=== PATIENT | male | born 1990 | race American Indian/Alaskan Native ===

== ENCOUNTER 2017-01-22 18:21 | Emergency (ER) | payer OTHER ==
[2017-01-22 19:00] VITALS: BP 127/77; PULSE 69; RESP 18; TEMP 98.6; O2SAT 98; BMI 25.8
--- NOTE | 2017-01-22 20:05 | ED PDOC ---
Arrival/HPI - General Chief Complaint: Allergic Reaction Time Seen by Provider: 01/22/17 19:15 Historian: Patient - History of Present Illness Narrative History of Present Illness (Text): 01/22/17 21:59 26yr old male presents today with 2 week history of rash and pruritis. pt states 2 week ago rash started after spraying OFF on his body. pt states he thought he was getting lots of bug bites. then patient developed pruritis to chest abdomen and back. pt states rash is dry and itchy. denies cp or sob. no abdominal pain. denies prior hx of psoriasis. Denies prior history of any skin infection. Denies difficulty breathing or swallowing. Denies rash on palms or soles. No other complaints Time/Duration: Other (2 weeks) Symptom Onset: Gradual Symptom Course: Worsening Quality: Other (No pain) Past Medical History - Provider Review Nursing Documentation Reviewed: Yes - Travel History Have you recently traveled outside [place] w/in the past 3 mons?: No - Infectious Disease Hx of Infectious Diseases: None - Tetanus Immunization Tetanus Immunization: Unknown - Past Medical History Past Medical History: No Previous - Psychiatric Hx Depression: No Hx Substance Use: No - Past Surgical History Past Surgical History: No Previous - Anesthesia Hx Anesthesia: No - Suicidal Assessment Feels Threatened In Home Enviroment: No Family/Social History - Physician Review Nursing Documentation Reviewed: Yes Family/Social History: Unknown Family HX Smoking Status: Never Smoked Hx Alcohol Use: No Hx Substance Use: No Substance used: marijuana Allergies/Home Meds Allergies/Adverse Reactions: Allergies bee venom protein (honey bee) Adverse Reaction (Verified 01/22/17 18:53) SWELLING Review of Systems - Review of Systems Constitutional: absent: Fatigue, Fevers Respiratory: absent: SOB, Cough Cardiovascular: absent: Chest Pain, Palpitations Gastrointestinal: absent: Abdominal Pain, Nausea, Vomiting Skin: Rash, Pruritis Neurological: absent: Headache, Dizziness Psychiatric: absent: Anxiety, Depression Physical Exam Vital Signs Reviewed: Yes Vital Signs Temp Pulse Resp BP Pulse Ox 01/22/17 18:49 98.6 F 69 18 127/77 98 Temperature: Afebrile Blood Pressure: Normal Pulse: Regular Respiratory Rate: Normal Appearance: Positive for: Well-Appearing, Non-Toxic, Comfortable Pain Distress: None Mental Status: Positive for: Alert and Oriented X 3 - Systems Exam Head: Present: Atraumatic Mouth: Present: Moist Mucous Membranes Neck: Present: Normal Range of Motion Respiratory/Chest: Present: Clear to Auscultation, Good Air Exchange. No: Respiratory Distress, Accessory Muscle Use Cardiovascular: Present: Regular Rate and Rhythm, Normal S1, S2. No: Murmurs Upper Extremity: Present: Normal ROM Lower Extremity: Present: Normal ROM Neurological: Present: GCS=15, Speech Normal Skin: Present: Warm, Dry, Rashes (Multiple erythematous scaling plaques of varying sizes noted to the forearms upper arms and chest back abdomen and lower legs. Rash spares the palms and soles.), Normal Color Psychiatric: Present: Alert, Oriented x 3 Medical Decision Making ED Course and Treatment: 01/22/17 Patient is nontoxic well-appearing in no distress with stable vital signs no angioedema. Lungs are clear to auscultation bilaterally there is no wheezing noted. The airway is patent Benadryl 25mg po prednisone po rash x 2 weeks; spares palms and soles; has psoriatic appearance to it. We'll cover her with prednisone, pepcid and Benadryl for the age. Advised follow-up with the occupational nurse within the next 2 days. Advised patient to follow up with primary care physician within the next 2 days and return if symptoms worsen persist or if new symptoms develop patient verbalized full agreement with and understanding of discharge instructions. States that he agrees with the plan and disposition. Verbalized and repeated discharge instructions and plan. I have given he the opportunity to ask any additional questions. all aspects of this case were discussed the attending of record. Impression :rash Benadryl every 6 hours as needed for itch Prednisone once daily x4 days Pepcid one tablet daily Follow up with the primary care physician within the next 2 days Follow up with the occupational nurse within the next 2 days. Return if symptoms worsen persist or if new symptoms develop: Shortness of breath, feeling of throat closing, difficulty speaking or any other concerning symptoms develop - Medication Orders Current Medication Orders: Discontinued Medications Diphenhydramine HCl (Benadryl) 25 mg PO ONCE ONE Stop: 01/22/17 19:48 Last Admin: 01/22/17 19:57 Dose: 25 mg Famotidine (Pepcid) 20 mg PO STAT STA Stop: 01/22/17 19:48 Last Admin: 01/22/17 19:57 Dose: 20 mg Prednisone (Prednisone Tab) 60 mg PO STAT ONE Stop: 01/22/17 19:48 Last Admin: 01/22/17 19:57 Dose: 60 mg Disposition/Present on Arrival - Present on Arrival Any Indicators Present on Arrival: No History of DVT/PE: No History of Uncontrolled Diabetes: No Urinary Catheter: No History of Decub. Ulcer: No History Surgical Site Infection Following: None - Disposition Have Diagnosis and Disposition been Completed?: Yes Diagnosis: Rash Disposition: HOME/ ROUTINE Disposition Time: 19:40 Patient Plan: Discharge Condition: GOOD Discharge Instructions (ExitCare): Acute Rash (ED) Additional Instructions: Benadryl every 6 hours as needed for itch Prednisone once daily x4 days Pepcid one tablet daily Follow up with the primary care physician within the next 2 days Follow up with the occupational nurse within the next 2 days. Return if symptoms worsen persist or if new symptoms develop: Shortness of breath, feeling of throat closing, difficulty speaking or any other concerning symptoms develop Prescriptions: DiphenhydrAMINE [Benadryl] 25 mg PO Q6H #20 cap Famotidine [Pepcid] 20 mg PO DAILY #30 tab predniSONE [predniSONE Tab] 3 tab PO DAILY #12 tab Referrals: Morales Stern DO [Staff Provider] - Follow up with primary Radha Blanca MD [Staff Provider] - Follow up with primary Forms: [employer] ([place]), WORK NOTE
== END 2017-01-22 20:05 | disposition home or self-care (01) ==
LOC: ED 18:21
DX: R21 Rash and other nonspecific skin eruption (principal)

== ENCOUNTER 2017-06-13 08:40 | Emergency (ER) | payer OTHER ==
[2017-06-13 08:55] VITALS: BMI 25.2
[2017-06-13 08:57] VITALS: TEMP 98.4
--- NOTE | 2017-06-13 09:22 | ED PDOC ---
Arrival/HPI - General Historian: Patient <herreraAriel A - Last Filed: 06/13/17 10:58> <Carolina Johnson - Last Filed: 06/14/17 12:21> - General Chief Complaint: Rib Injury Time Seen by Provider: 06/13/17 09:01 - History of Present Illness Narrative History of Present Illness (Text): 06/13/17 09:16 26yo male with no PMhx who present with complaint of right rib pain since this morning. Notes that pain started when he woke up this morning. Pain is with deep inspiration, 5/10, achy. He did not take any medication. Denies cough, trauma, SOB, diaphoresis, any other complaint. (Ariel Ayers A) Past Medical History - Provider Review Nursing Documentation Reviewed: Yes - Infectious Disease Hx of Infectious Diseases: None - Tetanus Immunization Tetanus Immunization: Unknown - Past Medical History Past Medical History: No Previous - Psychiatric Hx Depression: No Hx Substance Use: No - Past Surgical History Past Surgical History: No Previous - Anesthesia Hx Anesthesia: No - Suicidal Assessment Feels Threatened In Home Enviroment: No <ArmenAriel A - Last Filed: 06/13/17 10:58> Family/Social History - Physician Review Nursing Documentation Reviewed: Yes Family/Social History: Unknown Family HX Smoking Status: Never Smoked Hx Alcohol Use: Yes Frequency of alcohol use: Socially Hx Substance Use: No Substance used: marijuana <Ariel Ayers A - Last Filed: 06/13/17 10:58> Allergies/Home Meds <Ariel Ayers A - Last Filed: 06/13/17 10:58> <Carolina Johnson - Last Filed: 06/14/17 12:21> Allergies/Adverse Reactions: Allergies bee venom protein (honey bee) Adverse Reaction (Verified 01/22/17 18:53) SWELLING Review of Systems - Physician Review All systems were reviewed & negative as marked: Yes - Review of Systems Constitutional: Normal Eyes: Normal ENT: Normal Respiratory: Normal Cardiovascular: Normal Gastrointestinal: Normal Genitourinary Male: Normal Musculoskeletal: Arthralgias (right rib pain) Skin: Normal Neurological: Normal Endocrine: Normal Hemo/Lymphatic: Normal Psychiatric: Normal <Ariel Ayers A - Last Filed: 06/13/17 10:58> Physical Exam Vital Signs Reviewed: Yes Temperature: Afebrile Blood Pressure: Normal Pulse: Regular Respiratory Rate: Normal Appearance: Positive for: Well-Appearing, Non-Toxic, Comfortable Pain Distress: None Mental Status: Positive for: Alert and Oriented X 3 - Systems Exam Head: Present: Atraumatic, Normocephalic Pupils: Present: PERRL Extroacular Muscles: Present: EOMI Conjunctiva: Present: Normal Mouth: Present: Moist Mucous Membranes Neck: Present: Normal Range of Motion Respiratory/Chest: Present: Clear to Auscultation, Good Air Exchange, Tender to Palpation (Mild tenderness to right sided anterior lower rib/sternal angle). No : Respiratory Distress, Accessory Muscle Use, Wheezes, Decreased Breath Sounds, Retracting, Rhonchi Cardiovascular: Present: Regular Rate and Rhythm, Normal S1, S2. No: Murmurs Abdomen: Present: Normal Bowel Sounds. No: Tenderness, Distention, Peritoneal Signs Back: Present: Normal Inspection Upper Extremity: Present: Normal Inspection. No: Cyanosis, Edema Lower Extremity: Present: Normal Inspection. No: Edema Neurological: Present: GCS=15, CN II-XII Intact, Speech Normal Skin: Present: Warm, Dry, Normal Color. No: Rashes Psychiatric: Present: Alert, Oriented x 3, Normal Insight, Normal Concentration <Ariel Ayers A - Last Filed: 06/13/17 10:58> Vital Signs Temp Pulse Resp BP Pulse Ox 06/13/17 10:30 72 16 131/77 98 06/13/17 08:56 98.4 F 68 18 145/68 99 Medical Decision Making <ArmenHappiness A - Last Filed: 06/13/17 10:58> <Carolina Johnson - Last Filed: 06/14/17 12:21> ED Course and Treatment: 06/13/17 11:02 Right ribs/CXR No fracture. No PTX. Pt DC home with ibuprofen. Referred to his PMD (Ariel Ayers A) - RAD Interpretation Radiology Orders: 06/13/17 09:09 RIBS RIGHT & PA CHEST [RAD] Stat - Medication Orders Current Medication Orders: Discontinued Medications Ibuprofen (Motrin Tab) 600 mg PO STAT STA Stop: 06/13/17 09:10 Last Admin: 06/13/17 09:28 Dose: 600 mg MAR Pain/Vitals Document 06/13/17 09:28 JOSIAH (Rec: 06/13/17 09:28 [facility] [id number]) Pain Reassessment Is This A Pain ReAssessment? No Sleep Is patient sleeping during reassessment? No Presence of Pain Presence of Pain Yes Re-Assess: [id number] Pain/Vitals Document 06/13/17 10:28 JOSIAH (Rec: 06/13/17 13:37 [facility] [id number]) Pain Reassessment Is This A Pain ReAssessment? No - PA / CHEMICAL EQUIPMENT REPAIRER / Resident Statement MD/DO has reviewed & agrees with the documentation as recorded. <Carolina Johnson - Last Filed: 06/14/17 12:21> Disposition/Present on Arrival - Present on Arrival Any Indicators Present on Arrival: No History of DVT/PE: No History of Uncontrolled Diabetes: No Urinary Catheter: No History of Decub. Ulcer: No History Surgical Site Infection Following: None - Disposition Have Diagnosis and Disposition been Completed?: Yes Disposition Time: 11:05 Patient Plan: Discharge <Ariel Ayers - Last Filed: 06/13/17 10:58> - Present on Arrival Any Indicators Present on Arrival: No History of DVT/PE: No History of Uncontrolled Diabetes: No Urinary Catheter: No History of Decub. Ulcer: No History Surgical Site Infection Following: None - Disposition Have Diagnosis and Disposition been Completed?: Yes <Carolina Johnson - Last Filed: 06/14/17 12:21> - Disposition Diagnosis: Rib pain Disposition: HOME/ ROUTINE Condition: STABLE Discharge Instructions (ExitCare): Chest Pain (ED) Additional Instructions: Follow up with your doctor Return to ED for any new or worsening symptoms Prescriptions: Ibuprofen [Motrin Tab] 600 mg PO Q6 #20 tab Referrals: Kimani العراقي, [Primary Care Provider] - Follow up with primary [facility] [Outside] - Follow up with primary Forms: [employer] ([place]izen [place])
--- NOTE | 2017-06-13 10:49 | RAD ---
PROCEDURE: Radiographs of the Chest and Right Ribs. HISTORY: rib pain COMPARISON: None available. TECHNIQUE: Frontal radiograph of the chest and multiple oblique radiographs of the right ribs were obtained. FINDINGS: RIGHT RIBS: No fracture or focal lesion visualized. LUNGS: Clear. PLEURA: No pneumothorax or pleural fluid. CARDIOVASCULAR: Normal sized heart. No pulmonary vascular congestion. OTHER FINDINGS: None. IMPRESSION: Unremarkable radiographs of the chest and right ribs. No right rib fracture.
[2017-06-13 13:00] VITALS: BP 131/77; PULSE 72; RESP 16; O2SAT 98
== END 2017-06-13 11:20 | disposition home or self-care (01) ==
LOC: ED 08:40
DX: R07.89 Other chest pain (principal)

== ENCOUNTER 2017-06-16 04:53 | Emergency (ER) | payer OTHER ==
[2017-06-16 04:54] VITALS: BMI 25.2
[2017-06-16 05:06] VITALS: TEMP 97.5
--- NOTE | 2017-06-16 05:55 | ED PDOC ---
Arrival/HPI - General Chief Complaint: GI Problem Time Seen by Provider: 06/16/17 05:00 Historian: Patient - History of Present Illness Narrative History of Present Illness (Text): 06/16/17 05:55 A 26 year old male presents to the emergency department following episode of vomiting and nausea after having a few alcohol drinks this evening. Patient denies any diarrhea, abdominal pain or any other complaints at this time. Symptom Onset: Sudden Symptom Course: Unchanged Activities at Onset: Rest Context: Home Past Medical History - Provider Review Nursing Documentation Reviewed: Yes - Infectious Disease Hx of Infectious Diseases: None - Tetanus Immunization Tetanus Immunization: Unknown - Past Medical History Past Medical History: No Previous - Psychiatric Hx Depression: No Hx Substance Use: Yes - Past Surgical History Past Surgical History: No Previous - Anesthesia Hx Anesthesia: No - Suicidal Assessment Feels Threatened In Home Enviroment: No Family/Social History - Physician Review Nursing Documentation Reviewed: Yes Family/Social History: No Known Family HX Smoking Status: Never Smoked Hx Alcohol Use: Yes Hx Substance Use: Yes Substance used: marijuana Allergies/Home Meds Allergies/Adverse Reactions: Allergies bee venom protein (honey bee) Adverse Reaction (Verified 06/16/17 05:06) SWELLING Review of Systems - Physician Review All systems were reviewed & negative as marked: Yes - Review of Systems Constitutional: absent: Fevers Gastrointestinal: Nausea, Vomiting. absent: Abdominal Pain, Diarrhea Physical Exam Vital Signs Reviewed: Yes Vital Signs Temp Pulse Resp BP Pulse Ox 06/16/17 05:03 97.5 F L 68 16 98/66 L 99 Temperature: Afebrile Blood Pressure: Normal Pulse: Regular Respiratory Rate: Normal Appearance: Positive for: Comfortable, Other (mal odorous) Pain Distress: None Mental Status: Positive for: Alert and Oriented X 3 - Systems Exam Head: Present: Atraumatic, Normocephalic Pupils: Present: PERRL Extroacular Muscles: Present: EOMI Conjunctiva: Present: Normal Mouth: Present: Moist Mucous Membranes Neck: Present: Normal Range of Motion Respiratory/Chest: Present: Clear to Auscultation, Good Air Exchange. No: Respiratory Distress, Accessory Muscle Use Cardiovascular: Present: Regular Rate and Rhythm, Normal S1, S2. No: Murmurs Abdomen: Present: Normal Bowel Sounds. No: Tenderness, Distention, Peritoneal Signs Back: Present: Normal Inspection Upper Extremity: Present: Normal Inspection. No: Cyanosis, Edema Lower Extremity: Present: Normal Inspection. No: Edema Neurological: Present: GCS=15, CN II-XII Intact, Speech Normal Skin: Present: Warm, Dry, Normal Color. No: Rashes Psychiatric: Present: Alert, Oriented x 3, Normal Insight, Normal Concentration Medical Decision Making ED Course and Treatment: 06/16/17 05:53 Impression: A 26 year old male with vomiting. Plan: -- Zofran -- Reassess and disposition Prior Visits: Notes and results from previous visits were reviewed. Patient was last seen in the emergency department on 06/13/17 for evaluation of right rib pain. Progress Notes: - Medication Orders Current Medication Orders: Discontinued Medications Ondansetron HCl (Zofran Odt) 4 mg PO STAT STA Stop: 06/16/17 05:53 Last Admin: 06/16/17 06:03 Dose: 4 mg - Scribe Statement The provider has reviewed the documentation as recorded by the Tracy Damico Provider Scribe Attestation: All medical record entries made by the Zinaibluis daniel were at my direction and personally dictated by me. I have reviewed the chart and agree that the record accurately reflects my personal performance of the history, physical exam, medical decision making, and the department course for this patient. I have also personally directed, reviewed, and agree with the discharge instructions and disposition. Disposition/Present on Arrival - Present on Arrival Any Indicators Present on Arrival: No History of DVT/PE: No History of Uncontrolled Diabetes: No Urinary Catheter: No History of Decub. Ulcer: No History Surgical Site Infection Following: None - Disposition Have Diagnosis and Disposition been Completed?: Yes Diagnosis: Gastritis Disposition: HOME/ ROUTINE Disposition Time: 06:50 Patient Plan: Discharge Patient Problems: Current Active Problems Problem Status Onset Gastritis Acute Condition: GOOD Discharge Instructions (ExitCare): Gastritis (ED) Additional Instructions: Medication as prescribed/don't drink alcohol/follow up with your doctor Prescriptions: Ondansetron [Zofran Odt] 4 mg PO Q8 PRN #6 odt PRN Reason: Nausea/Vomiting Forms: [employer] ([place])
[2017-06-16 07:01] VITALS: BP 105/72; PULSE 70; RESP 18; O2SAT 100
== END 2017-06-16 07:01 | disposition home or self-care (01) ==
LOC: ED 04:53
DX: K29.70 Gastritis, unspecified, without bleeding (principal)

== ENCOUNTER 2017-06-29 07:32 | Emergency (ER) | payer OTHER ==
[2017-06-29 07:33] VITALS: BMI 25.2
[2017-06-29 08:03] VITALS: RESP 18; O2SAT 98
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
--- NOTE | 2017-06-29 10:45 | MRI ---
PROCEDURE: MRI Left Knee HISTORY: Twisted knee, severe pain/ swelling COMPARISON: Comparison is made with the previous x-ray of the left knee dated 06/29/2017 TECHNIQUE: Multiecho multiplanar sequences were performed through the left knee. FINDINGS: ANTERIOR CRUCIATE LIGAMENT:: High-grade sprain and partial thickness tear of the anterior cruciate ligament noted. POSTERIOR CRUCIATE LIGAMENT:: Intact. MEDIAL MENISCUS:: Mild extrusion of the medial meniscus noted associated with increased signal at the meniscus root suspicious for small tear. LATERAL MENISCUS:: Intact. MEDIAL COLLATERAL LIGAMENT:: There is moderate grade 2-3 sprain of the medial collateral ligament P LATERAL COLLATERAL LIGAMENT COMPLEX:: There is moderate to severe it grade 3 for sprain of the lateral collateral ligament complex. QUADRICEPS TENDON:: [id number] increased signal noted at the distal quadriceps tendon suggestive of moderate tendinopathy. The possibility of small intra substance tear is not totally excluded P PATELLAR TENDON:: There are also foci of increased signal noted at the patellar tendon suggestive of moderate tendinopathy. The heterogeneous increased signal more prominent at the distal/ tibial tuberosity attachment of the patellar tendon P CARTILAGE:: Foci of cartilage defects and thinning noted at the lateral femoral condyle. JOINT FLUID:: There is large joint effusion more prominent at the suprapatellar recess. OSSEOUS STRUCTURES:: There are foci of heterogeneous increased bone marrow signal noted at the posterior aspect of the patella and in the lateral femoral condyle suggestive of kissing subchondral bone bruises which likely represent secondary sign of ACL tear. The possibility of small nondisplaced fracture is less likely but not totally excluded. OTHER FINDINGS: Heterogeneous mild increased signal noted at the [place] fat. Increased signal also noted in the soft tissue at the posterior aspect of the knee suggestive of recent trauma. IMPRESSION: High-grade and partial-thickness tear of the anterior cruciate ligament. Large joint effusion. Hyperintense increased signal in the bone marrow noted at the posterior aspect of the tibial plateau to and in the lateral femoral condyle suggestive of kissing subchondral bone bruises. Heterogeneous increased signal noted in the quadriceps and patellar tendons. Suspicious for mild anterior horn medial meniscus extrusion with possible small tear at the medial meniscus root. Heterogeneous increased signal in the soft tissue suggestive of recent trauma.
--- NOTE | 2017-06-29 11:17 | RAD ---
PROCEDURE: Left Knee Radiographs. . HISTORY: Pain. COMPARISON: Correlation made with concurrent MRI in the FINDINGS: BONES: No evidence of acute displaced fracture nor dislocation JOINTS: Normal. No osteoarthritis. JOINT EFFUSION: Large suprapatellar size joint effusion. OTHER FINDINGS: None. IMPRESSION: No evidence of acute displaced fracture nor dislocation. Large suprapatellar joint effusion. The the the
[2017-06-29 11:39] VITALS: BP 132/78; PULSE 78; TEMP 98.3
== END 2017-06-29 11:40 | disposition home or self-care (01) ==
LOC: ED 07:32
DX: S83.512A Sprain of anterior cruciate ligament of left knee, initial encounter (principal); S70.12XA Contusion of left thigh, initial encounter; V18.0XXA Pedal cycle driver injured in noncollision transport accident in nontraffic accident, initial encounter; Y92.410 Unspecified street and highway as the place of occurrence of the external cause
CPT/HCPCS: 73562; 73721; 96372; 99283; J1885

== ENCOUNTER 2018-06-18 08:18 | Emergency (ER) | payer MEDICAID, OTHER ==
[2018-06-18 08:18] VITALS: BMI 25.2
--- NOTE | 2018-06-18 10:12 | ED PDOC ---
Arrival/HPI - General Chief Complaint: Cough, Cold, Congestion Time Seen by Provider: 06/18/18 09:22 Historian: Patient - History of Present Illness Narrative History of Present Illness (Text): 27 year old male, with no significant past medical history, who presents to the emergency department complaining of intermittent cough, congestion, and cold symptoms for the past month, worse last night and this morning. Patient reports he took an Advil last night before going to sleep, without significant relief. Patient notes he took Augmentin 110mg this morning around 06:00 (his moms). Patient states he has been taking Advil and Vitamin C throughout the month, with significant relief of symptoms intermittently. Patient states he did not go to see his PMD since he felt he was improving. Patient notes nausea, chills/night sweats, fevers, congestion and phlegm. Patient denies sore throat, or any other complaints. PMD: Madie Rubio Time/Duration: Other (Pt notes sx for past month, worse last night and this morning) Symptom Onset: Sudden Symptom Course: Intermittent Activities at Onset: Light Past Medical History - Provider Review Nursing Documentation Reviewed: Yes - Infectious Disease Hx of Infectious Diseases: None - Tetanus Immunization Tetanus Immunization: Unknown - Past Medical History Past Medical History: No Previous - Psychiatric Hx Depression: No Hx Substance Use: Yes - Past Surgical History Past Surgical History: No Previous - Surgical History Hx Orthopedic Surgery: Yes - Anesthesia Hx Anesthesia: No - Suicidal Assessment Feels Threatened In Home Enviroment: No Family/Social History - Physician Review Nursing Documentation Reviewed: Yes Family/Social History: Unknown Family HX Smoking Status: Never Smoked Hx Alcohol Use: Yes Hx Substance Use: Yes Substance used: marijuana Allergies/Home Meds Allergies/Adverse Reactions: Allergies bee venom protein (honey bee) Adverse Reaction (Verified 06/29/17 07:39) SWELLING Home Medications: Home Meds Medication Instructions Recorded Confirmed No Known Home Med 06/18/18 06/18/18 Review of Systems - Physician Review All systems were reviewed & negative as marked: Yes - Review of Systems Constitutional: Fevers (Pt notes fevers), Night Sweats (Pt notes night sweats). absent: Normal Eyes: absent: Vision Changes ENT: Sinus Congestion (pt notes congestion and phlegm). absent: Normal, Sore Throat Respiratory: Cough (pt notes cough ). absent: Normal Cardiovascular: Normal. absent: Chest Pain, Palpitations Gastrointestinal: absent: Normal, Abdominal Pain, Stool Changes, Constipation, Nausea, Vomiting Genitourinary Male: absent: Dysuria, Frequency, Hematuria Musculoskeletal: Normal. absent: Arthralgias, Back Pain, Neck Pain Skin: Normal. absent: Rash, Pruritis Neurological: Normal. absent: Headache, Dizziness, Focal Weakness, Gait Changes, Speech Changes, Facial Droop, Disequilibrium Psychiatric: Normal. absent: Anxiety, Depression Physical Exam Vital Signs Reviewed: Yes Vital Signs Temp Pulse Resp BP Pulse Ox 06/18/18 08:33 99.5 F 88 20 101/69 100 Temperature: Afebrile Blood Pressure: Normal Pulse: Regular Respiratory Rate: Normal Appearance: Positive for: Well-Appearing, Non-Toxic, Comfortable Pain Distress: None Mental Status: Positive for: Alert and Oriented X 3 - Systems Exam Head: Present: Atraumatic, Normocephalic Pupils: Present: PERRL Extroacular Muscles: Present: EOMI Conjunctiva: Present: Normal Ears: Present: Normal, NORMAL TM. No: Erythema Mouth: Present: Moist Mucous Membranes Pharnyx: Present: Normal. No: ERYTHEMA, EXUDATE, Uvular Deviation (Uvula midline), Muffled/Hoarse Voice Nose (Internal): Present: Normal Inspection, No Active Bleeding Neck: Present: Normal Range of Motion. No: Meningeal Signs, MIDLINE TENDERNESS Respiratory/Chest: Present: Clear to Auscultation, Good Air Exchange. No: Respiratory Distress, Accessory Muscle Use Cardiovascular: Present: Regular Rate and Rhythm, Normal S1, S2. No: Murmurs Abdomen: No: Tenderness, Distention, Peritoneal Signs Back: Present: Normal Inspection. No: CVA Tenderness Upper Extremity: Present: Normal Inspection. No: Cyanosis, Edema Lower Extremity: Present: Normal Inspection. No: Edema Neurological: Present: GCS=15, CN II-XII Intact, Speech Normal Skin: Present: Warm, Dry, Normal Color. No: Rashes Lymphatic: Present: Other (no posterior lymphadenopathy). No: Cervical Adenopathy, Axillary Adenopathy, Inguinal Adenopathy Psychiatric: Present: Alert, Oriented x 3, Normal Insight, Normal Concentration Medical Decision Making ED Course and Treatment: 06/18/18 09:22 Impression: 27 year old male who presents to the emergency department complaining of intermittent cough, congestion, and cold symptoms for the past month, worse last night and this morning. Lungs CTA b/l. No meningieal Signs. No rash. No abd pain. Tolerating clears well. No knee pain. Likely VIRAL URI. Well appearing in NAD. Uvula midline, no erythema or change in phonation or dysphagia Plan: -- X-Ray of chest, 2 views (PA/LAT) -- Motrin Tab 400mg PO -- Throat culture -- Rapid Flu A/B -- Rapid Strep Group A Antigen -- Reassess and disposition Prior Visits: Notes and results from previous visits were reviewed. Patient was last seen in the emergency department on 09/07/17 for pain to left knee s/p fall with knee in immobilizer. Patient was discharged home in stable condition, given instructions for care and directed to follow up with Orthopedist. Progress Notes: 06/18/18 11:12 Pt notes improvement XR, serology unremarkable. Remains well appearing in NAD. Likely VIRAL URI. will d/c home with return indications and follow up pt agreeable to plan - Lab Interpretations Lab Results: Lab Results 06/18/18 09:30: Grp A Beta Strep Ag Negative 06/18/18 09:30: Influenza Typ A,B (EIA) Negative for flu a/b - RAD Interpretation Narrative RAD Interpretations (Text): X-Ray of chest reviewed by radiologist, shows: Dictator : Derek Garcia MD Report Date : 06/18/2018 10:34:23 IMPRESSION: No active disease. Radiology Orders: 06/18/18 09:32 CHEST TWO VIEWS (PA/LAT) [RAD] Stat Financial Internship: Radiologist - Medication Orders Current Medication Orders: Discontinued Medications Ibuprofen (Motrin Tab) 400 mg PO STAT STA Stop: 06/18/18 09:34 Last Admin: 06/18/18 09:38 Dose: 400 mg MAR Pain/Vitals Document 06/18/18 09:38 GMD (Rec: 06/18/18 09:38 [facility]MD [id number] Pain Reassessment Is This A Pain ReAssessment? No - Scribe Statement The provider has reviewed the documentation as recorded by the Scribe Joyce Montana All medical record entries made by the Scribe were at my direction and personally dictated by me. I have reviewed the chart and agree that the record accurately reflects my personal performance of the history, physical exam, medical decision making, and the department course for this patient. I have also personally directed, reviewed, and agree with the discharge instructions and disposition. Disposition/Present on Arrival - Present on Arrival Any Indicators Present on Arrival: No History of DVT/PE: No History of Uncontrolled Diabetes: No Urinary Catheter: No History of Decub. Ulcer: No History Surgical Site Infection Following: None - Disposition Have Diagnosis and Disposition been Completed?: Yes Diagnosis: Viral URI Disposition: HOME/ ROUTINE Disposition Time: 10:54 Patient Problems: Current Active Problems Problem Status Onset Viral URI Acute Condition: GOOD Discharge Instructions (ExitCare): Viral Upper Respiratory Infection, Adult (DC) Additional Instructions: KENNY CLARK JR, thank you for letting us take care of you today. Your provider was Kenny Mckeon and you were treated for very sick maybe flu. The emergency medical care you received today was directed at your acute symptoms. If you were prescribed any medication, please fill it and take as directed. It may take several days for your symptoms to resolve. Return to the Emergency Department if your symptoms worsen, do not improve, or if you have any other problems. Please contact your doctor or call one of the physicians/clinics you have been referred to that are listed on the Patient Visit Information form that is included in your discharge packet. Bring any paperwork you were given at discharge with you along with any medications you are taking to your follow up visit. Our treatment cannot replace ongoing medical care by a primary care provider outside of the emergency department. Thank you for allowing the [employer] team to be part of your care today. If you had an X-Ray or CT scan: A Radiologist will review the ED reading if any change in treatment is needed we will contact you. If you had a blood, urine, or wound culture: It will take several days for the results, if any change in treatment is needed we will contact you. If you had an STI test: It will take 48 hours for the results. Please call after 1 week if you have not heard back. Referrals: [facility] [Outside] - Follow up with primary [facility] [Outside] - Follow up with primary Forms: [employer] (Faroese)
[2018-06-18 10:20] VITALS: BP 113/57; PULSE 71; RESP 18; O2SAT 98
[2018-06-18 10:36] VITALS: TEMP 98
--- NOTE | 2018-06-18 10:37 | RAD ---
Date of service: 06/18/2018 HISTORY: sob COMPARISON: 08/14/2016 TECHNIQUE: Chest PA and lateral FINDINGS: LUNGS: No active pulmonary disease. PLEURA: No significant pleural effusion identified. No pneumothorax apparent. CARDIOVASCULAR: No aortic atherosclerotic calcification present. Normal cardiac size. No pulmonary vascular congestion. OSSEOUS STRUCTURES: No significant abnormalities. VISUALIZED UPPER ABDOMEN: Normal. OTHER FINDINGS: None. IMPRESSION: No active disease.
== END 2018-06-18 11:33 | disposition home or self-care (01) ==
LOC: ED 08:18
DX: J06.9 Acute upper respiratory infection, unspecified (principal)